=== PATIENT | female | born 1945 | race Caucasian/White ===

== ENCOUNTER 2017-08-22 13:10 | Observation (INO) | payer OTHER, MEDICARE, MEDICAID, SELFPAY ==
[2017-08-22 14:00] VITALS: BP 141/69; PULSE 64; RESP 18; TEMP 36.9; O2SAT 99; BMI 20.7
--- NOTE | 2017-08-22 19:24 | PC.NURSE ---
report given to emma
--- NOTE | 2017-08-22 19:39 | PC.NURSE ---
report given to mery gray rn
[2017-08-22 19:42] VITALS: O2SAT 97
[2017-08-22 21:00] VITALS: O2SAT 100
[2017-08-23 04:00] VITALS: BP 161/71; PULSE 61; RESP 18; TEMP 36.7; O2SAT 99
--- NOTE | 2017-08-23 07:31 | PC.NURSE ---
REPORT GIVEN TO Ritu SALMERON W/C
--- NOTE | 2017-08-23 07:43 | PC.NURSE ---
REPORT GIVEN TO Giovanni VALLADARES RN
[2017-08-23 08:00] VITALS: BP 153/67; PULSE 67; RESP 18; TEMP 36.6; O2SAT 99
--- NOTE | 2017-08-23 15:12 | PC.NURSE ---
PT IS RESTING IN THE BED WITH FAMILY IN THE ROOM AT THIS TIME, RECEIVING ALL MEDICATIONS ON SCHEDULE. PT WAS ABLE TO TOLERATE SITTING UP IN THE CHAIR FOR BREAKFAST AND LUNCH. HOSPICE NURSE CAME TO SEE PT TODAY AND SHE STATED THE PLAN WILL BE FOR PT TO GO HOME TOMORROW. LUNG SOUNDS HAVE SCATTERED RHONCHI, BOWEL SOUNDS NORMAL, ALERT AND ORIENTED X3. WILL CONTINUE TO MONITOR.
[2017-08-23 20:00] VITALS: BP 117/61; PULSE 69; RESP 18; TEMP 36.6; O2SAT 96
[2017-08-23 20:30] VITALS: O2SAT 96
[2017-08-24 00:50] VITALS: O2SAT 92
--- NOTE | 2017-08-24 04:59 | PC.NURSE ---
Addendum entered by Tiff Dodge RN 08/24/17 05:57: Vistaril recounted with Antioentte palacios RN, count was correct this time to be 56 capsules left. Original Note: During 0000 med pass on pts home medications during count of vistaril the count was off. Previous shift counted there were 57 capsules in the bottle, this nurse counted 58 and verified it with another nurse (Antionette Metcalf), count was done twice.
--- NOTE | 2017-08-24 05:01 | PC.NURSE ---
Pt rested well this shift with daughter at bedside. Pt tolerating 4L NC well, pt states she wears the same amount at home. BS active in all 4 qauds. Lung sounds revealed faint wheezes in the right lower lobe. VSS. No acute distress noted. Will continue to monitor.
--- NOTE | 2017-08-24 07:15 | PC.NURSE ---
report given to liu lujan
--- NOTE | 2017-08-24 07:18 | PC.NURSE ---
REPORT GIVEN TO Allan MARTINEZ W/C
[2017-08-24 07:51] VITALS: BP 145/68; PULSE 76; RESP 20; TEMP 36.8; O2SAT 92
--- NOTE | 2017-08-24 09:18 | PC.NURSE ---
AT 0840 RESPITE PATIENT CHOSE TO LEAVE AT THIS TIME. FAMILY AT BEDSIDE. ALL HOME MEDS RETURNED TO FAMILY.
== END 2017-08-24 08:40 | disposition home or self-care (01) ==
PROVIDERS: Admitting Provider Family Medicine; PCP Family Medicine; Visit Provider Family Medicine
DX: I50.20 Unspecified systolic (congestive) heart failure (principal)
CPT/HCPCS: 94761; G0378